=== PATIENT | male | born 1965 | race Two or more races ===

== ENCOUNTER 2017-06-30 09:53 | Emergency (ER) | payer SELFPAY ==
[~2017-06-30] VITALS: Ht 170.2 cm; Wt 85.3 kg
[2017-06-30 10:54] LABS: Basophils # (auto) 0.1 uL; Basophils % (auto) 1.2 % (0.0-2.0); Eosinophils # (auto) 0.2 uL; Eosinophils % (auto) 2.9 % (0.0-7.0); Hematocrit 45.5 % (41.0-53.0); Hemoglobin 16.1 g/dL (13.5-17.5); Lymphocytes # (auto) 2.6 uL; Lymphocytes % (auto) 39.3 % (10.0-50.0); Mean Corpuscular Hemoglobin 31.2 pg (28.0-32.0); Mean Corpuscular Hgb Conc. 35.5 g/dL (32.0-36.0); Mean Corpuscular Volume 87.9 fL (80.0-100.0); Mean Platelet Volume 8.5 fL (6.9-10.8); Monocytes # (auto) 0.6 uL; Monocytes % (auto) 9.2 % (0.0-12.0); Neutrophils # (auto) 3.1 uL; Neutrophils % (auto) 47.4 % (37.0-80.0); Nucleated Red Blood Cells % 0.1 %; Platelet Count (auto) 224 10^3/uL (140-450); Red Cell Distribution Width 13.3 % (11.8-14.3); White Blood Cell 6.5 10^3/uL (4.4-10.8)
[2017-06-30 11:21] LABS: Albumin 3.9 g/dL (3.4-5.0); BUN/Creatinine Ratio 16.2; Bilirubin, Total 0.6 mg/dL (0.2-1.0); Calcium 8.7 mg/dL (8.5-10.1); Potassium 3.8 mmol/L (3.5-5.1); Total Protein 7.8 g/dL (6.4-8.2)
[2017-06-30 12:48] VITALS: BP 139/89
== END 2017-06-30 12:52 | disposition home or self-care (01) ==
LOC: ER 09:53
DX: K64.9 Unspecified hemorrhoids (principal)
CPT/HCPCS: 36415; 71010; 74176; 80053; 85025; 86677

== ENCOUNTER 2023-05-04 22:58 | Emergency (ER) | payer OTHER ==
[~2023-05-04] VITALS: Ht 172.7 cm; Wt 90.0 kg
[2023-05-04 23:20] VITALS: BP 139/92; O2SAT 96
[2023-05-05 04:20] VITALS: PULSE 77; RESP 18; TEMP 97.8
== END 2023-05-05 04:23 | disposition home or self-care (01) ==
LOC: ER 22:58
DX: R07.0 Pain in throat (principal); I10 Essential (primary) hypertension; Z98.890 Other specified postprocedural states
CPT/HCPCS: 70360

== ENCOUNTER 2024-06-19 08:36 | Emergency (ER) | payer OTHER ==
[~2024-06-19] VITALS: Ht 172.7 cm; Wt 93.1 kg
[2024-06-19 09:07] VITALS: BP 142/93; PULSE 95; RESP 20; TEMP 98; O2SAT 98
[2024-06-19] MEDS: KETOROLAC TROMETH 60MG/2ML VIAL IM ONE (09:33)
[2024-06-19] MEDS ORDERED: CYCL-839 PO (09:48)
[2024-06-19] MEDS ORDERED: IBUP-1456 PO (09:48)
== END 2024-06-19 09:51 | disposition home or self-care (01) ==
LOC: ER 08:36
DX: S39.012A Strain of muscle, fascia and tendon of lower back, initial encounter (principal); I10 Essential (primary) hypertension; X50.1XXA Overexertion from prolonged static or awkward postures, initial encounter; Y93.01 Activity, walking, marching and hiking; Y92.89 Other specified places as the place of occurrence of the external cause; Y99.8 Other external cause status
CPT/HCPCS: 72100; 96372; 99283; J1885